=== PATIENT | female | born 1960 | race Caucasian/White ===

== ENCOUNTER 2019-02-07 18:48 | Emergency (ER) | payer MEDICAID ==
[~2019-02-07] VITALS: Ht 170.2 cm; Wt 129.3 kg
[2019-02-07 19:16] VITALS: Ht 170.2 cm; Wt 129.3 kg
[2019-02-07 22:39] VITALS: BP 118/77
== END 2019-02-07 22:39 | disposition home or self-care (01) ==
LOC: ED 18:48
DX: T24.201A Burn of second degree of unspecified site of right lower limb, except ankle and foot, initial encounter (principal); X10.2XXA Contact with fats and cooking oils, initial encounter; Y93.89 Activity, other specified; Y92.89 Other specified places as the place of occurrence of the external cause; Y99.8 Other external cause status
CPT/HCPCS: 90715

== ENCOUNTER 2019-04-21 14:54 | Emergency (ER) | payer MEDICAID ==
[~2019-04-21] VITALS: Ht 167.6 cm; Wt 127.0 kg
[2019-04-21 15:11] VITALS: Ht 167.6 cm; Wt 127.0 kg
[2019-04-21 17:44] VITALS: BP 142/85
== END 2019-04-21 17:44 | disposition home or self-care (01) ==
LOC: ED 14:54
DX: T24.201D Burn of second degree of unspecified site of right lower limb, except ankle and foot, subsequent encounter (principal); X08.8XXD Exposure to other specified smoke, fire and flames, subsequent encounter